=== PATIENT | male | born 1985 | race Caucasian/White ===

== ENCOUNTER 2019-04-09 18:41 | Emergency (ER) | payer SELFPAY ==
[2019-04-09] MEDS ORDERED: Acetaminophen 325 MG TAB ONE (20:46)
== END 2019-04-09 20:50 | disposition home or self-care (01) ==
LOC: ERS 18:41
DX: J01.90 Acute sinusitis, unspecified (principal); K02.9 Dental caries, unspecified; K03.81 Cracked tooth; K21.9 Gastro-esophageal reflux disease without esophagitis; I10 Essential (primary) hypertension; F41.9 Anxiety disorder, unspecified; F31.9 Bipolar disorder, unspecified; F17.210 Nicotine dependence, cigarettes, uncomplicated; F17.220 Nicotine dependence, chewing tobacco, uncomplicated
CPT/HCPCS: 87804; 99281

== ENCOUNTER 2019-04-17 20:02 | Emergency (ER) | payer SELFPAY ==
[2019-04-17] MEDS ORDERED: Cyclobenzaprine 10 MG TAB ONE ×2 (21:13→21:14)
--- NOTE | 2019-04-17 21:33 | RAD ---
Left hand 3 views HISTORY: Left hand injury. FINDINGS: Joint spaces are preserved. No acute fracture or dislocation. IMPRESSION: Normal exam.
--- NOTE | 2019-04-17 21:34 | RAD ---
Left forearm 2 views HISTORY: Injury. FINDINGS: Radius and ulna are intact. No acute fracture, dislocation, or aggressive osseous erosions. IMPRESSION: Normal exam.
== END 2019-04-17 22:07 | disposition home or self-care (01) ==
LOC: ERS 20:02
DX: S16.1XXA Strain of muscle, fascia and tendon at neck level, initial encounter (principal); M79.632 Pain in left forearm; K21.9 Gastro-esophageal reflux disease without esophagitis; I10 Essential (primary) hypertension; F41.9 Anxiety disorder, unspecified; F17.210 Nicotine dependence, cigarettes, uncomplicated; Z71.6 Tobacco abuse counseling; Z79.899 Other long term (current) drug therapy; V89.2XXA Person injured in unspecified motor-vehicle accident, traffic, initial encounter
CPT/HCPCS: 99406; L0120